=== PATIENT | female | born 1990 ===

== ENCOUNTER 2018-12-27 17:15 | Inpatient (IN) | payer BC, OTHER ==
[2018-12-27 17:55] VITALS: BMI 30.7
[2018-12-27 19:20] LABS: BASO % 0.2 % (0-2.0); EOS % 0.4 % (0-4.5); HEMATOCRIT 32.5 % (32.4-45.2); HEMOGLOBIN 10.8 GM/dL (10.7-15.3); LYMPH % 10.9 % (8-40); MCH 25.4 pg (25.7-33.7); MCHC 33.1 g/dl (32.0-36.0); MEAN CELL VOLUME 76.7 fl (80-96); MEAN PLT VOLUME 8.5 fl (7.5-11.1); MONO % 6.4 % (3.8-10.2); NEUT % 82.1 % (42.8-82.8); PLATELET COUNT 269 K/MM3 (134-434); RBC 4.24 M/mm3 (3.60-5.2); RDW 14.7 % (11.6-15.6); WHITE BLOOD COUNT 9.8 K/mm3 (4.0-10.0)
[2018-12-27] MEDS ORDERED: PROMETHAZINE HCL 25 MG/1 ML VIAL IVPUSH ONE (19:24)
[2018-12-27] MEDS ORDERED: BUTORPHANOL TARTRATE 1 MG/ML VIAL IVPB ONE (19:24)
--- NOTE | 2018-12-27 19:24 | HP ---
Past Medical History - Primary Care Physician PCP:: Dolores Powell - Admission Chief Complaint: 28yo P 0 @ 39.6wks with no ctxns, no VB, no LOF, + FM. for post term IOL History of Present Illness: 1. HgE - FOB tested and not a carrier 2. Parvovirus non immune 3. GBS neg - no need for Antibiotic prophylaxis History Source: Patient, Medical Record Limitations to Obtaining History: No Limitations - Past Medical History Pulmonary: Yes: Asthma (last attack 2015, currently not on meds) ...: 1 ...Para: 0 ...Term: 0 ...: 0 ...Spon : 0 ...Induced : 0 ...Multiple Gestation: 0 ...LMP: 01/31/18 ...EDC by [facility]: 12/28/18 - Past Surgical History Past Surgical History: Yes: None Hx Myomectomy: No Hx Transabdominal Cerclage: No - Smoking History Smoking history: Never smoked Have you smoked in the past 12 months: No - Alcohol/Substance Use Hx Alcohol Use: No History of Substance Use: reports: None - Social History Usual Living Arrangement: Yes: With Spouse History of Recent Travel: No Home Medications - Allergies Allergies/Adverse Reactions: Allergies Allergy/AdvReac Type Severity Reaction Status Date / Time No Known Allergies Allergy Verified 12/27/18 17:57 - Home Medications Home Medications: Ambulatory Orders Albuterol Sulfate Inhaler - [Ventolin Hfa Inhaler -] 1 puff IH PRN PRN 12/27/18 Folic Acid - 1 tab PO DAILY 12/27/18 Vits96/Iron Fum/Folic [ Tablet] 1 tab PO DAILY 12/27/18 Family Disease History - Family Disease History Family Disease History: Heart Disease: Grandparent (HTN), Other: Mother ( Hypothyrodism) Review of Systems - Review of Systems Constitutional: reports: No Symptoms Eyes: reports: No Symptoms HENT: reports: No Symptoms Neck: reports: No Symptoms Cardiovascular: reports: No Symptoms Respiratory: reports: No Symptoms Gastrointestinal: reports: No Symptoms Genitourinary: reports: No Symptoms Breasts: reports: No Symptoms Reported Musculoskeletal: reports: No Symptoms Integumentary: reports: No Symptoms Neurological: reports: No Symptoms Endocrine: reports: No Symptoms Hematology/Lymphatic: reports: No Symptoms Psychiatric: reports: No Symptoms Pain Intensity: 0 Physical Exam - Maternity Vital Signs: Vital Signs Temperature 98.1 F 12/27/18 17:15 Pulse Rate 78 12/27/18 18:00 Respiratory Rate 18 12/27/18 18:00 Blood Pressure 130/66 12/27/18 18:00 O2 Sat by Pulse Oximetry (%) Constitutional: Yes: Well Nourished, No Distress, Calm Eyes: Yes: WNL HENT: Yes: WNL, Atraumatic, Normocephalic Neck: Yes: WNL, Supple, Trachea Midline Cardiovascular: Yes: WNL, Regular Rate and Rhythm Lungs: Clear to auscultation Breast(s): Yes: WNL - Abdominal Exam/OB Fundal Height: 38 (6lb) Number of Fetuses: Single Presentation: Vertex Contractions: No Monitor Mode: External Heart Rate (range): 140 Heart Rate Location: Midline Category: I Accelerations: Uniform Decelerations: None - Vaginal Exam/OB Vaginal Bleediing: No Dilatation (cm): 2-3 Effacement (%): 50% Amniotic Membrane Status: Intact Presentation: Vertex/Position Station: -3 - Physical Exam Musculoskeletal: Yes: WNL Extremities: Yes: WNL Edema: No Integumentary: Yes: WNL Deep Tendon Reflex Grade: Normal +2 ...Motor Strength: WNL Psychiatric: Yes: WNL, Alert, Oriented - Labs Lab Results: CBC, BMP 12/27/18 18:30 Assessment/Plan 28yo P0 @ 39.6wks Admit to L&D for post term IOL Cervix is not fully favorable so will first prime with Cytotec 25mcg than will proceed with Pitocin Process of induction discussed in detail Pain medications discussed as well Admit to L&D IVF, NPO, Labs consents signed all questions answered
[2018-12-27 19:27] LABS: INR 0.92 (0.83-1.09); PROTHROMBIN TIME (PATIENT) 10.9 SEC (9.7-13.0)
[2018-12-27 19:30] LABS: ACTIVATED PTT 28.3 SECONDS (25.2-36.5)
[2018-12-27] MEDS ORDERED: OXYTOCIN 30 UNITS in 0.9% NS 30 UNIT/500 ML INFUS.BAG IVPB SCH (19:30)
[2018-12-27] MEDS ORDERED: DEXTROSE 5%-LACTATED RINGERS 1,000 ML IV SCH (19:30)
[2018-12-27] MEDS ORDERED: ELECTROLYTE-148 SOLN 1,000 ML IV SCH (19:30)
[2018-12-27 19:31] LABS: CALCIUM 8.2 mg/dL (8.5-10.1); CREATININE 0.6 mg/dL (0.55-1.3); POTASSIUM 4.1 mmol/L (3.5-5.1)
[2018-12-27 19:34] LABS: PLATELET ESTIMATE ADEQUATE
[2018-12-27] MEDS ORDERED: MISOPROSTOL 100 MCG TABLET PV SCH (22:00)
[2018-12-27] MEDS ORDERED: PROMETHAZINE HCL 25 MG/1 ML VIAL ONE (23:02)
[2018-12-27] MEDS ORDERED: BUTORPHANOL TARTRATE 2 MG/ML VIAL ONE (23:02)
[2018-12-28] MEDS ORDERED: OXYTOCIN 30 UNITS in 0.9% NS 30 UNIT/500 ML INFUS.BAG IVPB ONE (00:31)
[2018-12-28] MEDS ORDERED: FENTANYL/BUPIVACAINE/NS/PF - PCEA - 50 ML DISP.SYRIN EP ONE ×2 (01:42→06:28)
--- NOTE | 2018-12-28 02:08 | PN ---
Progress Note, Labor Vaginal Exam #1 Labor Exam Date: 12/28/18 Labor Exam Time: 02:00 Heart Rate (range): 140 Dilatation: 3 Effacement (%): 75% Amniotic Membrane Status: Ruptured (while sitting for epidural) Presentation: Vertex/Position Station: -2 Remarks: MF status reasuring
[2018-12-28] MEDS ORDERED: NALOXONE HCL 0.4 MG/ML VIAL IVPUSH PRN (08:03)
[2018-12-28] MEDS ORDERED: FENTANYL/BUPIVACAINE/NS/PF - PCEA - 50 ML DISP.SYRIN EP SCH (08:15)
[2018-12-28] MEDS ORDERED: OXYTOCIN 20 UNITS in 0.9% NS 20 UNIT/1,000 ML INFUS.BAG IV ONE ×2 (10:15→10:18)
[2018-12-28] MEDS ORDERED: LIDOCAINE HCL 1% PRESERVATIVE FREE - 30ML VIAL ONE ×2 (10:17→11:55)
[2018-12-28] MEDS ORDERED: BENZOCAINE 28 GM HEMORRHOIDAL OINTMENT TP PRN (13:15)
[2018-12-28] MEDS ORDERED: D5W-LR W/ 20 UNITS OXYTOCIN 20 UNIT/1,000 ML INFUS.BAG IV SCH (13:15)
[2018-12-28] MEDS ORDERED: WITCH HAZEL 50% (TUCKS) 40 PAD/JAR PAD TP PRN (13:15)
[2018-12-28] MEDS ORDERED: BISACODYL 10 MG SUPP.RECT RC PRN (13:15)
[2018-12-28] MEDS ORDERED: BENZOCAINE 20% 57 GM BOTTLE TP PRN (13:15)
[2018-12-28] MEDS ORDERED: METHYLERGONOVINE MALEATE 0.2 MG/1 ML AMP IM PRN (13:15)
[2018-12-28] MEDS ORDERED: SODIUM CHLORIDE 100 ML IVPB ONE (13:17)
[2018-12-28] MEDS ORDERED: ceFAZolin SODIUM 1 GM VIAL ONE (13:17)
[2018-12-28] MEDS: CEFAZOLIN 1 GM in DEXTROSE 5%-WATER - 50 ML IVPB SCH ×2 (13:20→18:41)
--- NOTE | 2018-12-28 13:21 | PN ---
Delivery - Delivery Section: Primary Type of Anesthesia: Local, Epidural Episiotomy/Laceration: Midline, 3rd degree EBL (cc): 500 Delivery, Single - Stages of Labor Date 1st Stage Initiatied: 12/28/18 Time 1st Stage Initiated: 02:05 Date 2nd Stage Initiated: 12/28/18 Time 2nd Stage Initiated: 10:25 Date of Delivery: 12/28/18 Time of Delivery: 11:51 Date Placenta Delivered: 12/28/18 Time Placenta Delivered: 11:55 Placenta: Yes: Spontaneous - Condition of Infant Completion Engineer/Librarian Assistant Present: No Gender: Female Weight: 6 lb 12 oz Position: Left - 1 Minute Total Score: 9 5 Minutes Total Score: 9 - [place] Feeding Plan Initial Plan: Elected not to breastfeed exclusively throughout hospitalization Benefits of Exclusively reinforced: Yes Remarks - Remarks Remarks: cord aroung the neck x 1 reduced Uncomplicated head and shoulder delivery
[2018-12-28] MEDS ORDERED: OXYTOCIN 20 UNITS in 0.9% NS 1000 ML INFUS.BAG IV ONE (13:22)
[2018-12-28] MEDS ORDERED: OXYTOCIN 20 UNITS in 0.9% NS 20 UNIT/1,000 ML INFUS.BAG IV SCH (13:45)
[2018-12-28 14:03] LABS: VENOUS PC02 52.8 mmHg (41-51); VENOUS PH 7.26 (7.31-7.41); VENOUS PO2 30.9 mmHg (30-40)
[2018-12-28 14:06] LABS: ARTERIAL BLD GAS O2 SATURATION 11.1 % (95-98); ARTERIAL BLOOD GAS BASE EXCESS -7.5 meq/l (-2-2)
[2018-12-28 14:13] LABS: ARTERIAL BLOOD GAS PCO2 73.5 mmHg (35-45); ARTERIAL BLOOD GAS pH 7.14 (7.35-7.45)
[2018-12-28 14:14] LABS: ARTERIAL BLOOD GAS PO2 12.7 mmHg (80-105)
[2018-12-28] MEDS: IBUPROFEN 600 MG TABLET (FP) PO PRN (18:46)
[2018-12-28] MEDS: ACETAMINOPHEN 325 MG TABLET (FP) PO PRN (18:47)
[2018-12-28] MEDS: FERROUS SO4 325 MG TABLET (FP) PO SCH (22:01)
[2018-12-29] MEDS: CEFAZOLIN 1 GM in DEXTROSE 5%-WATER - 50 ML IVPB SCH ×2 (01:46→10:13)
[2018-12-29] MEDS: ACETAMINOPHEN 325 MG TABLET (FP) PO PRN ×2 (06:41→18:02)
[2018-12-29] MEDS: IBUPROFEN 600 MG TABLET (FP) PO PRN ×2 (06:43→18:03)
--- NOTE | 2018-12-29 07:06 | PN ---
Post Progress Note - Subjective Subjective: No complaints. Doing well. Ambulating. Voiding w/o difficulties Asymptomatic for anemia. Post Day: 1 Type of Delivery: Vital Signs: Vital Signs Temperature 98 F 12/29/18 06:00 Pulse Rate 79 12/29/18 06:00 Respiratory Rate 18 12/29/18 06:00 Blood Pressure 128/81 12/29/18 06:00 O2 Sat by Pulse Oximetry (%) 100 12/28/18 15:00 Breast Exam: Yes: Soft Uterus: Yes: Fundus Firm, Fundus below umbilicus Abdomen/GI: Yes: Abdomen soft, Tolerating PO Lochia: Yes: Rubra Lochia, amount: Small Extremities: Yes: Calves non-tender, Edema Perineum: Yes: Intact Activity: Ambulating - Labs Labs: CBC WBC 9.8 K/mm3 (4.0-10.0) 12/27/18 18:30 RBC 4.24 M/mm3 (3.60-5.2) 12/27/18 18:30 Hgb 10.8 GM/dL (10.7-15.3) 12/27/18 18:30 Hct 32.5 % (32.4-45.2) 12/27/18 18:30 MCV 76.7 fl (80-96) L 12/27/18 18:30 MCH 25.4 pg (25.7-33.7) L 12/27/18 18:30 MCHC 33.1 g/dl (32.0-36.0) 12/27/18 18:30 RDW 14.7 % (11.6-15.6) 12/27/18 18:30 Plt Count 269 K/MM3 (134-434) 12/27/18 18:30 MPV 8.5 fl (7.5-11.1) 12/27/18 18:30 Absolute Neuts (auto) 8.0 K/mm3 (1.5-8.0) 12/27/18 18:30 Neutrophils % 82.1 % (42.8-82.8) 12/27/18 18:30 Neutrophils % (Manual) 82.0 % (42.8-82.8) 12/27/18 18:30 Band Neutrophils % 0.0 % 12/27/18 18:30 Lymphocytes % 10.9 % (8-40) 12/27/18 18:30 Lymphocytes % (Manual) 11.0 % (8-40) 12/27/18 18:30 Monocytes % 6.4 % (3.8-10.2) 12/27/18 18:30 Monocytes % (Manual) 6 % (3.8-10.2) 12/27/18 18:30 Eosinophils % 0.4 % (0-4.5) 12/27/18 18:30 Eosinophils % (Manual) 1.0 % (0-4.5) 12/27/18 18:30 Basophils % 0.2 % (0-2.0) 12/27/18 18:30 Basophils % (Manual) 0.0 % (0-2.0) 12/27/18 18:30 Nucleated RBC % 0 % (0-0) 12/27/18 18:30 Platelet Estimate Adequate 12/27/18 18:30 Assessment/Plan 28yo P1 s/p , doing well stable, afebrile. Asymptomatic for anemia. care instructions reviewed. Continue routine care. Ambulation encouraged Discharge instruction reviewed.
[2018-12-29 07:59] LABS: BASO % 0.3 % (0-2.0); EOS % 0.6 % (0-4.5); LYMPH % 11.8 % (8-40); MCH 25.3 pg (25.7-33.7); MCHC 33.1 g/dl (32.0-36.0); MEAN CELL VOLUME 76.5 fl (80-96); MEAN PLT VOLUME 8.6 fl (7.5-11.1); MONO % 7.4 % (3.8-10.2); NEUT % 79.9 % (42.8-82.8); PLATELET COUNT 223 K/MM3 (134-434); RBC 3.54 M/mm3 (3.60-5.2); RDW 14.5 % (11.6-15.6); WHITE BLOOD COUNT 15.2 K/mm3 (4.0-10.0)
--- NOTE | 2018-12-29 08:13 | DS ---
Physical Exam-REAL ESTATE PHOTOGRAPHER Vital Signs: Vital Signs Temperature 98 F 12/29/18 06:00 Pulse Rate 79 12/29/18 06:00 Respiratory Rate 18 12/29/18 06:00 Blood Pressure 128/81 12/29/18 06:00 O2 Sat by Pulse Oximetry (%) 100 12/28/18 15:00 Constitutional: Yes: Well Nourished, No Distress, Calm Eyes: Yes: WNL, Conjunctiva Clear HENT: Yes: WNL, Atraumatic, Normocephalic Neck: Yes: WNL, Supple, Trachea Midline Cardiovascular: Yes: WNL, Regular Rate and Rhythm Respiratory: Yes: WNL, Regular, CTA Bilaterally Gastrointestinal: Yes: WNL, Normal Bowel Sounds, Soft ...Rectal Exam: Yes: Deferred Renal/: Yes: WNL Pelvis: Yes: WNL ....Post : Yes: Uterus firm, Uterus non-tender, Slight lochia rubra, Moderate lochia serosa Breast(s): Yes: WNL Musculoskeletal: Yes: WNL Extremities: Yes: WNL Edema: Yes Edema: LLE: Trace, RLE: Trace Integumentary: Yes: WNL Neurological: Yes: WNL, Alert, Oriented ...Motor Strength: WNL Psychiatric: Yes: WNL, Alert, Oriented Labs: CBC, BMP 12/27/18 18:30 Delivery - Delivery Vaginal Delivery: No Problems, Spontaneous Section: Primary Type of Anesthesia: Local, Epidural Episiotomy/Laceration: Midline, 3rd degree EBL (cc): 500 Delivery, Single - Stages of Labor Date 1st Stage Initiatied: 12/28/18 Time 1st Stage Initiated: 02:05 Date 2nd Stage Initiated: 12/28/18 Time 2nd Stage Initiated: 10:25 Date of Delivery: 12/28/18 Time of Delivery: 11:51 Time Placenta Delivered: 11:55 Placenta: Yes: Spontaneous - Condition of Infant Alum Plant Operator/Dev Manager Present: No Infant Gender: Female Weight: 3.062 kg Position: Left Total Hours ROM (Hrs/Mins): 9/50 - 1 Minute Total Score: 9 5 Minutes Total Score: 9 - [place] Feeding Plan Initial Plan: Elected not to breastfeed exclusively throughout hospitalization Benefits of Exclusively reinforced: Yes Discharge Summary Reason For Visit: INDUCTION Procedures: Principal: Other Procedures: Repair of OB laceration Hospital Course: Normal recovery Condition: Good - Instructions Diet, Activity, Other Instructions: Physical activity Resume your normal everyday activity as tolerated no heavy lifting or exercise until seen by your surgeon. You may walk unlimited lu of and climb stairs. You may resume driving the car when you feel safe and comfortable behind the wheel. No sexual activity as instructed. Wound care If you have a bandage, leave it on, and keep dry for 48-72 hours. After that time discard the outer bandage. If they are tapes on the skin under the out of bandage leave them in place. They will peel off in the next 7 to 10 days. Do Not Peel them off. You may shower the day after surgery. If there are tapes present on the skin, you may shower over them. Diet There are no dietary restrictions. Eat healthy, high-fiber foods. Drink 6 to 8 glasses of liquid each day. This will assist in keeping your bowels are regular. Pain management You may take Tylenol or acetaminophen or Ibuprofen (for example, Motrin, Advil etc.) from my pain prescription medication is ordered should be taken as prescribed for moderate to severe pain. Call MD for any of the following: Severe pain not relieved by medication Fever of 101 or higher Excessive bleeding or drainage on dressing Inability to urinate Referrals: Dolores Powell MD [Staff Physician] - Disposition: HOME - Home Medications Comprehensive Discharge Medication List: Ambulatory Orders Albuterol Sulfate Inhaler - [Ventolin Hfa Inhaler -] 1 puff IH PRN PRN 12/27/18 Folic Acid - 1 tab PO DAILY 12/27/18 Vits96/Iron Fum/Folic [ Tablet] 1 tab PO DAILY 12/27/18
[2018-12-29] MEDS: PRENATAL VITAMINS W/ FOLIC ACID TABLET (FP) PO SCH (10:13)
[2018-12-29] MEDS: FERROUS SO4 325 MG TABLET (FP) PO SCH ×2 (10:13→21:15)
[2018-12-29] MEDS ORDERED: SENNOSIDES/DOCUSATE COMBO (SENNA PLUS) TABLET (UD) PO PRN (22:00)
[2018-12-30] MEDS: ACETAMINOPHEN 325 MG TABLET (FP) PO PRN ×2 (05:22→10:43)
[2018-12-30] MEDS: IBUPROFEN 600 MG TABLET (FP) PO PRN ×2 (05:25→10:43)
--- NOTE | 2018-12-30 07:50 | PN ---
Post Progress Note - Subjective Subjective: Patient without acute complaints. Reports tolerating oral intake without nausea or vomiting. Ambulating without dizziness. Denies fevers or chills. Pain well controlled with oral pain medication. without difficulty. Passing flatus. Post Day: 2 Type of Delivery: Vital Signs: Vital Signs Temperature 97.9 F 12/29/18 22:00 Pulse Rate 70 12/29/18 22:00 Respiratory Rate 18 12/29/18 22:00 Blood Pressure 120/70 12/29/18 22:00 O2 Sat by Pulse Oximetry (%) 100 12/28/18 15:00 Breast Exam: Yes: Soft Uterus: Yes: Fundus Firm, Fundus below umbilicus Abdomen/GI: Yes: Abdomen soft, Passing flatus, Tolerating PO. No: Abdominal Distention, Tender Lochia: Yes: Rubra Lochia, amount: Small Extremities: Yes: Calves non-tender, Edema (trace) Perineum: Yes: Laceration Activity: Ambulating - Labs Labs: CBC WBC 15.2 K/mm3 (4.0-10.0) H 12/29/18 06:53 RBC 3.54 M/mm3 (3.60-5.2) L 12/29/18 06:53 Hgb 9.0 GM/dL (10.7-15.3) L 12/29/18 06:53 Hct 27.0 % (32.4-45.2) L D 12/29/18 06:53 MCV 76.5 fl (80-96) L 12/29/18 06:53 MCH 25.3 pg (25.7-33.7) L 12/29/18 06:53 MCHC 33.1 g/dl (32.0-36.0) 12/29/18 06:53 RDW 14.5 % (11.6-15.6) 12/29/18 06:53 Plt Count 223 K/MM3 (134-434) 12/29/18 06:53 MPV 8.6 fl (7.5-11.1) 12/29/18 06:53 Absolute Neuts (auto) 12.1 K/mm3 (1.5-8.0) H 12/29/18 06:53 Neutrophils % 79.9 % (42.8-82.8) 12/29/18 06:53 Neutrophils % (Manual) 82.0 % (42.8-82.8) 12/27/18 18:30 Band Neutrophils % 0.0 % 12/27/18 18:30 Lymphocytes % 11.8 % (8-40) 12/29/18 06:53 Lymphocytes % (Manual) 11.0 % (8-40) 12/27/18 18:30 Monocytes % 7.4 % (3.8-10.2) 12/29/18 06:53 Monocytes % (Manual) 6 % (3.8-10.2) 12/27/18 18:30 Eosinophils % 0.6 % (0-4.5) 12/29/18 06:53 Eosinophils % (Manual) 1.0 % (0-4.5) 12/27/18 18:30 Basophils % 0.3 % (0-2.0) 12/29/18 06:53 Basophils % (Manual) 0.0 % (0-2.0) 12/27/18 18:30 Nucleated RBC % 0 % (0-0) 12/29/18 06:53 Platelet Estimate Adequate 12/27/18 18:30 Assessment/Plan 28 yo PPD # 2 sp , afebrile, vital signs stable, doing well 1. Patient stable for discharge home today. 2. Patient encouraged to contact MD for: - Severe pain not controlled by oral pain medication - Fevers or chills - Nausea or vomiting, intolerance of oral intake 3. Patient to follow up in office in 4-6 weeks for visit
[2018-12-30] MEDS: FERROUS SO4 325 MG TABLET (FP) PO SCH (10:08)
[2018-12-30] MEDS: PRENATAL VITAMINS W/ FOLIC ACID TABLET (FP) PO SCH (10:08)
[2018-12-30 11:09] VITALS: BP 111/72; PULSE 76; TEMP 98
== END 2018-12-30 16:15 | disposition home or self-care (01) | DRG 768 ==
LOC: JLDR 17:15 → J3W 12-28 16:00
PROVIDERS: ADMIT Obstetrics & Gynecology; ATTEND Obstetrics & Gynecology
PROC: 0DQR0ZZ Repair Anal Sphincter, Open Approach (ICD-10-PCS; principal; 2018-12-28)
PROC: 10E0XZZ Delivery of Products of Conception, External Approach (ICD-10-PCS; 2018-12-28)
DX: O70.20 Third degree perineal laceration during delivery, unspecified (principal); Z37.0 Single live birth; Z3A.39 39 weeks gestation of pregnancy
CPT/HCPCS: 36415; 36600; 59409; 80048; 82803; 85025; 85610; 85730; 86593; 86850; 86870; 86900; 86901; 86902